=== PATIENT | male | born 1975 | race Caucasian/White ===

== ENCOUNTER → 2017-11-11 11:40 | Outpatient (CLI) | payer OTHER, SELFPAY ==
[2017-11-11 12:34] LABS: Anion Gap 6 (5-15); BUN 15 mg/dL (7-18); BUN/Creat Ratio 14.3 RATIO (10-20); Calcium,Total 8.6 mg/dL (8.5-10.1); Chloride 109 mmol/L (98-107); Cholesterol 209 mg/dL (200); Creatinine, Serum 1.05 mg/dL (0.70-1.30); EST Glomerular Filtration Rate 82 mL/min (>60); Est Glom Filt Rate - Afr Amer 99 mL/min (>60); Glucose 89 mg/dL (74-106); High Density Lipoprotein 42 mg/dL; Potassium 4.3 mmol/L (3.5-5.1); Sodium Level 141 mmol/L (136-145); Triglycerides 181 mg/dL; Very Low Density Lipoprotein 36 mg/dL (5-40)
== END ==
PROVIDERS: Family Provider Family Medicine; PCP Family Medicine; Visit Provider Family Medicine
DX: Z00.00 Encounter for general adult medical examination without abnormal findings (principal)
CPT/HCPCS: 36415; 80048; 80061; 84403

== ENCOUNTER 2019-12-01 21:57 | Emergency (ER) | payer OTHER, SELFPAY ==
[2019-12-01 21:58] VITALS: BP 119/78; PULSE 197; RESP 15; TEMP 36.7; O2SAT 99; BMI 34.4
--- NOTE | 2019-12-01 22:07 | EKG12_ITS ---
Test Reason : PALPATIONS Blood Pressure : / mmHG Vent. Rate : 135 BPM Atrial Rate : 135 BPM P-R Int : 154 ms QRS Dur : 084 ms QT Int : 284 ms P-R-T Axes : 055 009 030 degrees QTc Int : 426 ms Sinus tachycardia Otherwise normal ECG Confirmed by MAT RODRIGEZ ([id number]), news copy editor CARTER DAVENPORT ([id number]) on 12/03/2019 2:00:34 PM Referred By: CHINO Confirmed By:MAT RODRIGEZ
--- NOTE | 2019-12-01 22:07 | RAD_ITS ---
HISTORY: HEART ARRYTHMIA/PALPATATIONS, ALSO HAD THEM 2 WEEKS AGO. EXAM: XR Chest 1 View: COMPARISON: None FINDINGS: # of images incl. paperwork: 1 Lungs are clear. Heart is not enlarged. No acute osseous pathology perceived. Pulmonary vascularity is distinct. No effusions. RAD/Chest 1 View (Portable) IMPRESSION: Normal. at [id number] Reported and signed by: Collins Cope MD Electronically Signed: Collins Cope MD at 22:57 EST Tel , Service support ,
--- NOTE | 2019-12-01 22:07 | ED.RN ---
SERVER ENGINEER CALLED FOR EKG, NO OLD EKGS IN MUSE
[2019-12-01 22:21] VITALS: BP 152/95; PULSE 132; RESP 20; O2SAT 96
[2019-12-01 22:44] LABS: Absolute Lymphocyte Count 2.56 X10^3/uL (0.83-4.51); Absolute Neutrophil Count 6.5 X10^3/uL (2.0-7.7); Basophil# 0.06 X10^3/uL; Basophil% 0.6 % (0-1); Eosinophil# 0.21 X10^3/uL; Hematocrit 44.9 % (40-54); Hemoglobin 15.2 g/dL (13.0-16.5); Lymphocyte # 2.56 X10^3/ul (4.0); Lymphocyte % 24.9 % (19-41); Mean Corp Hgb Conc 33.9 g/dL (32-36); Mean Corpuscular Hgb 29.2 pg (27.0-32.0); Mean Corpuscular Volume 86.2 fL (80-94); Mean Platelet Vol. 9.5 fl (6.2-12.0); Monocyte# 0.91 X10^3/uL; Monocyte% 8.9 % (0-10); NRBC Flagged by Analyzer 0 % (0-5); Neutrophil % 63.3 % (47-70); Platelet Count 292 K/mm3 (150-450); RBC Distribution Width CV 11.9 % (11.6-14.6); RBC Distribution Width SD 37.2 fl (35.1-43.9); Red Blood Count 5.21 M/mm3 (4.6-6.2); White Blood Count 10.3 K/mm3 (4.4-11.0)
[2019-12-01 22:55] LABS: International Normalized Ratio 1.1; Prothrombin Time (Protime)PT. 13.5 SECONDS (11.7-14.9)
[2019-12-01 23:09] LABS: Anion Gap 5 (5-15); BUN 11 mg/dL (7-18); BUN/Creat Ratio 9.5 RATIO (10-20); Chloride 108 mmol/L (98-107); Creatinine, Serum 1.16 mg/dL (0.70-1.30); EST Glomerular Filtration Rate 72 mL/min (>60); Est Glom Filt Rate - Afr Amer 87 mL/min (>60); Glucose 133 mg/dL (74-106); Potassium 3.7 mmol/L (3.5-5.1); Sodium Level 141 mmol/L (136-145)
[2019-12-01] MEDS: 0.9% Normal Saline 1,000 ML 999 ML IV (23:18)
[2019-12-01 23:21] VITALS: BP 141/93; PULSE 120; RESP 16; O2SAT 97
[2019-12-02 00:09] VITALS: BP 136/97; PULSE 99; RESP 22; O2SAT 98
--- NOTE | 2019-12-02 01:10 | ED.VIS.GEN ---
History of Present Illness Chief Complaint: Palpitations Informant: Patient Onset: Hours - several Context: Sudden Onset Timing: Intermittent, Lasts - minutes or seconds Quality: racing Location: chest Current Severity: Mild Maximum Severity: Moderate Worsened by: nothing Relieved by: nothing Associated Symptoms: none Narrative: Palpitations without any chest discomfort, lightheadedness, shortness of breath, leg swelling. Had this before but it was after drinking a whole bottle of cold brew coffee. He has not had any since until today. He states his coffee intake has been less than usual, but he did drink 2 cups total over the course of the day today, and he presents almost at midnight. He has no other health problems. Past Medical History - Allergies and Home Meds Allergies/Adverse Reactions: Allergies No Known Allergies Allergy (Verified 12/01/19 21:58) Primary Care Physician: Jacob Moy MD [Primary Care Provider] - Past Medical History: None Surgical History: no surgical history Lives: Spouse/ Significant Other Smoking Status: Never smoker Drugs: None Review of Systems General: Denies: Chills, Fever, Sweats Eyes: Denies: Visual changes - bilaterally, Diplopia ENT: Denies: Rhinorrhea, Sore throat Cardiovascular: Reports: Palpitations, Heart racing. Denies: Chest pain Respiratory: Denies: Dyspnea, Cough, Dyspnea on exertion Gastrointestinal: Denies: Abdominal pain, Nausea, Vomiting, Diarrhea, Melena, Hematochezia Genitourinary: Denies: Dysuria, Hematuria, Frequency Musculoskeletal: Denies: Back pain, Extremity Pain Skin: Denies: Rash, Wounds Neurological: Denies: Headache, Weakness, Numbness Physical Exam Vital Signs/Narrative: Vital Signs Temp Pulse Resp BP Pulse Ox 12/02/19 00:09 99 22 H 136/97 H 98 12/01/19 23:21 120 H 16 141/93 H 97 12/01/19 22:21 132 H 20 H 152/95 H 96 12/01/19 21:58 98.0 F 197 H 15 119/78 99 Inital Vital Signs reviewed: Yes General: Well nourished, Well developed, No Acute Distress Head: Normocephalic, Atraumatic Eyes: Perrl, EOMI ENT: Moist mucous membranes, No rhinorrhea Neck: Supple, Nontender, No JVD Cardiovascular: Regular rate, Regular rhythm, No murmurs, Normal S1, Normal S2, Tachycardia Respiratory: No distress, CTA bilaterally, Chest nontender Abdomen: Soft, Nontender, Nondistended, Normal bowel sounds Back: Nontender, Normal Inspection Extremities: Nontender, No edema. Negative for: Calf Tenderness Skin: Normal color, No rash, No Trauma Neurological: Alert, Oriented x3, Cranial nerves II-XII grossly intact, Normal Strength, Normal Sensation, Normal Gait Psychological: Normal affect, Normal Mood Diagnostic/Tx/Re-eval - Rhythm Strip Rhythm Strip: Sinus Tach Rate: 135 Ectopy: None - EKG Initial EKG Interpretation: No Acute Injury Pattern, Sinus Tachycardia - Upright T waves inferiorly Prior: No Prior - Medical Decision Making Patient appeared to have intermittent runs of atrial fib. We obtained an initial EKG that either shows sinus tachycardia or ectopic atrial tachycardia, and attempted to obtain 1 when he was going into this narrow complex irregular tachycardia in the 170s that resembled atrial fibrillation, but he did not have another episode. We do have it on a rhythm strip. With time his heart rate came down to the 90s. His labs are unremarkable. I discussed with cardiology Dr. Albert, he recommends Toprol XL 25mg once daily and following up as an outpatient. He is comfortable with that plan. ED Disposition - Plan for ED Patient: Disposition: Home or Assisted Living Diagnosis: Tachyarrhythmia Instructions: Palpitations, Pat (P.A.T.) Prescriptions: Metoprolol Succinate [Toprol Xl] 25 mg PO DAILY 30 Days #30 tab.er.24h Transmission Status: Pending to [id number] Referrals: [facility] [Provider Group] (call tomorrow for appt)
[2019-12-02 01:14] VITALS: BP 150/95; PULSE 94; RESP 18; O2SAT 100
[2019-12-02] MEDS: Metoprolol Tartrate 25 MG Tablet PO (01:42)
[2019-12-02 01:43] VITALS: BP 141/94; PULSE 90; RESP 18; O2SAT 98
== END 2019-12-02 01:51 | disposition home or self-care (01) ==
PROVIDERS: Emergency Provider Emergency Medicine; PCP Family Medicine
DX: R00.0 Tachycardia, unspecified (principal)
CPT/HCPCS: 71045; 80048; 84484; 85025; 85610; 93005; 96361; 96374; 99285; J7030; A4216

== ENCOUNTER → 2019-12-18 14:30 | Outpatient (CLI) | payer OTHER, SELFPAY ==
[2019-12-01 21:58] VITALS: BMI 34.4
[2019-12-18 16:11] LABS: Anion Gap 5 (5-15); BUN 15 mg/dL (7-18); BUN/Creat Ratio 15.3 RATIO (10-20); Calcium,Total 8.9 mg/dL (8.5-10.1); Chloride 107 mmol/L (98-107); Cholesterol 241 mg/dL (200); Creatinine, Serum 0.98 mg/dL (0.70-1.30); EST Glomerular Filtration Rate 88 mL/min (>60); Est Glom Filt Rate - Afr Amer 106 mL/min (>60); Glucose 84 mg/dL (74-106); High Density Lipoprotein 45 mg/dL; Sodium Level 140 mmol/L (136-145); Triglycerides 277 mg/dL; Very Low Density Lipoprotein 55 mg/dL (5-40)
[2019-12-21 08:04] LABS: Vitamin D,25 Hydroxy 15.1 ng/mL
== END ==
PROVIDERS: PCP Family Medicine; Referring Provider Family Medicine; Visit Provider Family Medicine
DX: Z00.00 Encounter for general adult medical examination without abnormal findings (principal)
CPT/HCPCS: 36415; 80048; 80061; 82306

== ENCOUNTER → 2021-09-08 08:27 | Outpatient (CLI) | payer OTHER, SELFPAY ==
[2021-09-08 10:52] LABS: ALB/GLOB Ratio 1.2 RATIO (0.9-2.4); AST(SGOT) 14 U/L (15-37); Alanine Aminotransfer ALT/SGPT 29 U/L (16-61); Alkaline Phosphatase 44 U/L (45-117); Anion Gap 7 (5-15); BUN 21 mg/dL (7-18); BUN/Creat Ratio 20.8 RATIO (10-20); Calcium,Total 8.9 mg/dL (8.5-10.1); Chloride 106 mmol/L (98-107); Cholesterol 158 mg/dL (200); Creatinine, Serum 1.01 mg/dL (0.70-1.30); EST Glomerular Filtration Rate 84 mL/min (>60); Est Glom Filt Rate - Afr Amer 102 mL/min (>60); Globulin 3.4 g/dL (2.2-4.2); Glucose 105 mg/dL (74-106); High Density Lipoprotein 46 mg/dL; Potassium 4.4 mmol/L (3.5-5.1); Protein, Total 7.4 g/dL (6.4-8.2); Sodium Level 141 mmol/L (136-145); Thyroid Stim Hormone (TSH) 2.18 uIU/mL (0.358-3.74); Triglycerides 222 mg/dL; Very Low Density Lipoprotein 44 mg/dL (5-40)
== END ==
PROVIDERS: PCP Family Medicine; Referring Provider Family Medicine; Visit Provider Family Medicine
DX: R53.83 Other fatigue (principal); E78.5 Hyperlipidemia, unspecified
CPT/HCPCS: 36415; 80053; 80061; 84403; 84443

== ENCOUNTER 2021-10-19 09:57 | Outpatient (CLI) | payer OTHER, SELFPAY | END 2021-10-19 23:59 | disposition short-term general hospital (02) | LOC: MFPLAB 10:00 | PROVIDERS: PCP Family Medicine; Referring Provider Family Medicine; Visit Provider Family Medicine | DX: U07.1 COVID-19 (principal) | CPT/HCPCS: 36415; 84403 ==

== ENCOUNTER → 2022-04-15 | Outpatient (CLI) | payer OTHER, SELFPAY | END | disposition home or self-care (01) | LOC: MFPLAB 08:18 | PROVIDERS: PCP Family Medicine; Visit Provider Family Medicine | DX: R79.89 Other specified abnormal findings of blood chemistry (principal) | CPT/HCPCS: 36415; 84403 ==

== ENCOUNTER → 2022-08-24 | Outpatient (CLI) | payer OTHER, SELFPAY ==
[2022-08-24 10:27] LABS: ALB/GLOB Ratio 1.1 RATIO (0.9-2.4); AST(SGOT) 15 U/L (15-37); Alanine Aminotransfer ALT/SGPT 30 U/L (16-61); Albumin, Serum 3.7 g/dL (3.2-5.0); Alkaline Phosphatase 42 U/L (45-117); Anion Gap 6 (5-15); BUN 12 mg/dL (7-18); BUN/Creat Ratio 10.3 RATIO (10-20); Calcium,Total 8.9 mg/dL (8.5-10.1); Chloride 107 mmol/L (98-107); Cholesterol 135 mg/dL (200); Creatinine, Serum 1.16 mg/dL (0.70-1.30); EST Glomerular Filtration Rate 71 mL/min (>60); Est Glom Filt Rate - Afr Amer 86 mL/min (>60); Globulin 3.4 g/dL (2.2-4.2); Glucose 106 mg/dL (74-106); High Density Lipoprotein 36 mg/dL; Potassium 3.4 mmol/L (3.5-5.1); Protein, Total 7.1 g/dL (6.4-8.2); Sodium Level 144 mmol/L (136-145); Triglycerides 221 mg/dL; Very Low Density Lipoprotein 44 mg/dL (5-40)
== END | disposition home or self-care (01) ==
LOC: MFPLAB 08:33
PROVIDERS: PCP Family Medicine; Referring Provider Family Medicine; Visit Provider Family Medicine
DX: E78.5 Hyperlipidemia, unspecified (principal)
CPT/HCPCS: 36415; 80053; 80061

== ENCOUNTER → 2022-09-02 | Outpatient (CLI) | payer OTHER, SELFPAY | END | disposition home or self-care (01) | LOC: MTLAB 11:18 | PROVIDERS: PCP Family Medicine; Referring Provider Family Medicine; Visit Provider Family Medicine | DX: E29.1 Testicular hypofunction (principal) | CPT/HCPCS: 36415; 84403 ==

== ENCOUNTER → 2023-02-22 | Outpatient (CLI) | payer OTHER, SELFPAY ==
[2023-02-22 10:50] LABS: ALB/GLOB Ratio 1.2 RATIO (0.9-2.4); AST(SGOT) 16 U/L (15-37); Alanine Aminotransfer ALT/SGPT 27 U/L (16-61); Albumin, Serum 3.8 g/dL (3.2-5.0); Alkaline Phosphatase 38 U/L (45-117); Anion Gap 7 (5-15); BUN 19 mg/dL (7-18); BUN/Creat Ratio 15.4 RATIO (10-20); Calcium,Total 8.7 mg/dL (8.5-10.1); Chloride 110 mmol/L (98-107); Cholesterol 143 mg/dL (200); Creatinine, Serum 1.23 mg/dL (0.70-1.30); EST Glomerular Filtration Rate 67 mL/min (>60); Est Glom Filt Rate - Afr Amer 81 mL/min (>60); Globulin 3.2 g/dL (2.2-4.2); Glucose 114 mg/dL (74-106); High Density Lipoprotein 39 mg/dL; Potassium 4.2 mmol/L (3.5-5.1); Sodium Level 143 mmol/L (136-145); Triglycerides 250 mg/dL; Very Low Density Lipoprotein 50 mg/dL (5-40)
== END | disposition home or self-care (01) ==
LOC: MFPLAB 08:28
PROVIDERS: PCP Family Medicine; Visit Provider Family Medicine
DX: R79.89 Other specified abnormal findings of blood chemistry (principal); E78.5 Hyperlipidemia, unspecified
CPT/HCPCS: 36415; 80053; 80061; 84403

== ENCOUNTER → 2023-08-23 | Outpatient (CLI) | payer OTHER, SELFPAY ==
[2023-08-23 10:18] LABS: Absolute Lymphocyte Count 1.92 X10^3/uL (0.83-4.51); Absolute Neutrophil Count 5.4 X10^3/uL (2.0-7.7); Basophil# 0.07 X10^3/uL; Basophil% 0.9 % (0-1); Eosinophil# 0.18 X10^3/uL; Eosinophils% 2.2 % (0-5); Hematocrit 48.1 % (40-54); Hemoglobin 15.7 g/dL (13.0-16.5); Lymphocyte # 1.92 X10^3/ul (0.83-4.51); Lymphocyte % 23.5 % (19-41); Mean Corp Hgb Conc 32.6 g/dL (32-36); Mean Corpuscular Hgb 29.2 pg (27.0-32.0); Mean Corpuscular Volume 89.4 fL (80-94); Mean Platelet Vol. 10.3 fl (6.2-12.0); Monocyte# 0.59 X10^3/uL; Monocyte% 7.2 % (0-10); NRBC Flagged by Analyzer 0 % (0-5); Neutrophil # 5.38 X10^3/uL (2.7-7.7); Platelet Count 278 K/mm3 (150-450); RBC Distribution Width CV 11.9 % (11.6-14.6); RBC Distribution Width SD 38.9 fl (35.1-43.9); Red Blood Count 5.38 M/mm3 (4.6-6.2); White Blood Count 8.2 K/mm3 (4.4-11.0)
[2023-08-23 11:11] LABS: ALB/GLOB Ratio 1.2 RATIO (0.9-2.4); AST(SGOT) 14 U/L (15-37); Alanine Aminotransfer ALT/SGPT 33 U/L (16-61); Alkaline Phosphatase 42 U/L (45-117); Anion Gap 6 (5-15); BUN 18 mg/dL (7-18); BUN/Creat Ratio 15.9 RATIO (10-20); Calcium,Total 8.7 mg/dL (8.5-10.1); Chloride 108 mmol/L (98-107); Creatinine, Serum 1.13 mg/dL (0.70-1.30); EST Glomerular Filtration Rate 73 mL/min (>60); Est Glom Filt Rate - Afr Amer 89 mL/min (>60); Globulin 3.3 g/dL (2.2-4.2); Glucose 103 mg/dL (74-106); Potassium 4.5 mmol/L (3.5-5.1); Protein, Total 7.3 g/dL (6.4-8.2); Sodium Level 141 mmol/L (136-145)
== END | disposition home or self-care (01) ==
LOC: MFPLAB 08:46
PROVIDERS: PCP Family Medicine; Visit Provider Family Medicine
DX: E78.5 Hyperlipidemia, unspecified (principal); E29.1 Testicular hypofunction
CPT/HCPCS: 36415; 80053; 84153; 84403; 85025; G0103

== ENCOUNTER → 2024-04-19 | Outpatient (CLI) | payer OTHER, SELFPAY ==
[2024-04-19 12:27] LABS: Absolute Lymphocyte Count 2.09 X10^3/uL (0.83-4.51); Absolute Neutrophil Count 5.1 X10^3/uL (2.0-7.7); Basophil# 0.06 X10^3/uL; Basophil% 0.7 % (0-1); Eosinophil# 0.24 X10^3/uL; Eosinophils% 2.9 % (0-5); Hematocrit 42.8 % (40-54); Hemoglobin 14.8 g/dL (13.0-16.5); Lymphocyte # 2.09 X10^3/ul (0.83-4.51); Lymphocyte % 25.5 % (19-41); Mean Corp Hgb Conc 34.6 g/dL (32-36); Mean Corpuscular Hgb 29.4 pg (27.0-32.0); Mean Corpuscular Volume 85.1 fL (80-94); Monocyte% 8.5 % (0-10); NRBC Flagged by Analyzer 0 % (0-5); Neutrophil # 5.09 X10^3/uL (2.7-7.7); Platelet Count 285 K/mm3 (150-450); RBC Distribution Width CV 12.6 % (11.6-14.6); RBC Distribution Width SD 38.5 fl (35.1-43.9); Red Blood Count 5.03 M/mm3 (4.6-6.2); White Blood Count 8.2 K/mm3 (4.4-11.0)
[2024-04-19 12:48] LABS: ALB/GLOB Ratio 1.2 RATIO (0.9-2.4); AST(SGOT) 12 U/L (15-37); Alanine Aminotransfer ALT/SGPT 22 U/L (16-61); Albumin, Serum 3.6 g/dL (3.2-5.0); Alkaline Phosphatase 44 U/L (45-117); Anion Gap 5 (5-15); BUN 14 mg/dL (7-18); BUN/Creat Ratio 12.4 RATIO (10-20); Calcium,Total 8.7 mg/dL (8.5-10.1); Chloride 109 mmol/L (98-107); Cholesterol 138 mg/dL (200); Creatinine, Serum 1.13 mg/dL (0.70-1.30); EST Glomerular Filtration Rate 73 mL/min (>60); Est Glom Filt Rate - Afr Amer 88 mL/min (>60); Globulin 3.1 g/dL (2.2-4.2); Glucose 99 mg/dL (74-106); High Density Lipoprotein 39 mg/dL; PSA,Total - Annual Screen 1.56 ng/mL (0.00-4.00); Potassium 3.7 mmol/L (3.5-5.1); Protein, Total 6.7 g/dL (6.4-8.2); Sodium Level 140 mmol/L (136-145); Triglycerides 171 mg/dL; Very Low Density Lipoprotein 34 mg/dL (5-40)
== END | disposition home or self-care (01) ==
LOC: MFPLAB 10:12
PROVIDERS: PCP Family Medicine; Visit Provider Family Medicine
DX: E78.5 Hyperlipidemia, unspecified (principal)
CPT/HCPCS: 36415; 80053; 80061; 84153; 84403; 85025; G0103

== ENCOUNTER → 2024-08-26 | Outpatient (CLI) | payer OTHER, SELFPAY ==
--- NOTE | 2024-08-26 08:53 | BI_ITS ---
MAMMOGRAPHY - BILATERAL DIAGNOSTIC REASON FOR EXAM: Male, 49 years old. Left breast tenderness and mass. PERTINENT HISTORY: Non-contributory. TECHNIQUE: Digital bilateral breast carlos (3D mammographic acquisition) in the CC and MLO projections. 2-D mediolateral oblique (MLO) and craniocaudad (CC) views of both breasts were obtained. CAD: Full Field Digital Mammography with Computer Added Detection was performed. COMPARISON: None. Baseline examination. FINDINGS: Breast Composition: The breasts are almost entirely fatty. There are no dominant masses or suspicious calcifications. Small bilateral fat containing axillary lymph nodes. No other significant abnormalities are identified. BI/DIAG MAMM W/CAD, BILAT IMPRESSION: Negative diagnostic mammogram. With the patient''s history of a tender palpable lump in the left breast, correlation with ultrasound recommended. ASSESSMENT CATEGORY: BIRADS Category 0: Incomplete. Need additional imaging evaluation. A letter regarding these results will be sent to the patient by the facility within 30 days. Approximately 10% of breast cancers are not detected by mammography. A normal mammogram should not delay biopsy of a clinically suspicious abnormality. Electronically Signed: Jay Connors MD at 10:17 EST ,
--- NOTE | 2024-08-26 09:29 | US_ITS ---
STUDY: ULTRASOUND BREAST - LEFT REASON FOR EXAM: Male, 49 years old. Left breast tenderness/mass TECHNIQUE: Axial and longitudinal images of the LEFT breast were performed with a high resolution ultrasound transducer. # OF IMAGES: 31 COMPARISON: Comparison is made with prior mammogram done earlier today. FINDINGS: LEFT Breast: Scattered fibroglandular tissue. No masses seen. US/Breast Limited Unilateral IMPRESSION: Unremarkable sonogram. ASSESSMENT CATEGORY: BIRADS Category 1: Negative. A letter regarding these results will be sent to the patient by the facility within 30 days. Electronically Signed: Jay Connors MD at 10:40 EST ,
== END | disposition home or self-care (01) ==
PROVIDERS: PCP Family Medicine; Referring Provider Family Medicine; Visit Provider Family Medicine
DX: N64.4 Mastodynia (principal)
CPT/HCPCS: 76642; 77062; 77066; G0279

== ENCOUNTER → 2025-04-25 | Outpatient (CLI) | payer OTHER, SELFPAY ==
--- OUTSIDE RECORDS SUMMARY | 2025-04-25 11:41 | XMS RPT_ITS | CCD ---
Author Organization [facility] Care Team Providers Care [employer] Name Role Phone TAMMY MARSHALL Unavailable Unavailable JACOB BOWLING Unavailable Unavailable JACOB BOWLING Unavailable Unavailable TAMMY MARSHALL Unavailable Unavailable JACOB BOWLING Unavailable Unavailable JACOB BOWLING Unavailable Unavailable Miranda FRANKS MD Unavailable [phone] RED JOSEPH Unavailable Unavailable Unavailable Jacob Mahmood MD Primary Care Provider [phone] NANI ZURITA Attending Unavailable JACOB MAHMOOD Primary Care Unavailable Dr. Jacob Mahmood MD Primary Care Provider [phone] Dr. Jacob Mahmood MD Referring Provider Dr. Lonny Mercado MD Attending Provider Jacob Mahmood Referring Unavailable Lonny Mercado Attending Unavailable Jacob Mahmood Primary Care Unavailable Jacob Mahmood Attending Unavailable Jacob Mahmood Referring Unavailable Jacob Mahmood Primary Care Unavailable Allergies Allergy Classification Reported Allergen(s) Allergy Type Date of Onset Reaction(s) Facility (8 sources) Mold Extract; Translations: [MOLD] Drug Allergy 01-08-2021 Unknown [facility] (1 source) Mold Extract Drug Allergy 04-22-2025 [facility] Repository Medications Current Medications Medication Drug Class(es) Dates Sig (Normalized) Sig (Original) atovaquone 250 mg / proguanil hydrochloride 100 mg oral tablet (1 source) Antimalarial, Antiprotozoal Start: 10-18-2023 Malarone 250 mg-100 mg tablet ; 1 (one) tablet daily for 17 days Quantity: 17 {Tablet} Refills: 0 Ordered: 18-Oct-2023 GRACIA ESPITIA Start: 18-Oct-2023 24 hr buPROPion hydrochloride 300 mg extended release oral tablet (2 sources) Aminoketone Start: 04-22-2025 take 1 tablet by mouth once daily Bupropion Hcl 300 mg tablet extended release 24 hr Active 300 mg PO daily April 22, 2025 12:00am Start: 11-06-2021 take 1 tablet by santana once daily buPROPion XL (WELLBUTRIN XL) 300 mg 24 hr tablet Take 300 mg by mouth once daily. 0 11/06/2021 Active cholecalciferol 0.025 mg oral capsule (7 sources) Vitamin D Start: 01-08-2021 take 1 capsule by mouth once daily Cholecalciferol, Vitamin D3, 25 mcg (1,000 unit) cap Take 1 capsule by mouth once daily. 01/08/2021 Active Start: 01-08-2021 take 1 capsule by mo [facility] once daily Cholecalciferol (Vitamin D3) 25 mcg (1,000 unit) capsule Active 25 ug PO DAILY January 08, 2021 12:00am loratadine 10 mg oral tablet (7 sources) Start: 03-06-2020 take 1 tablet by mouth once daily Loratadine 10 mg tablet Active 10 mg PO DAILY March 06, 2020 12:00am losartan potassium 50 mg oral tablet (20 sources) Angiotensin 2 Receptor Nicol Start: 12-25-2019 End: 07-04-2024 take 1 tablet by mouth once daily Losartan 50 mg tablet Active 50 mg PO DAILY 90 3 July 04, 2024 9:43am 24 hr metoprolol succinate 25 mg extended release oral tablet (20 sources) beta-Adrenergic Nicol Start: 12-21-2020 End: 03-04-2025 take 1 tablet by mouth once daily Metoprolol Succinate 25 mg tablet extended release 24 hr Active 25 mg PO DAILY 90 90 3 March 04, 2025 9:08am Start: 12-02-2019 End: 01-01-2020 take 1 tablet by mouth once daily Metoprolol Succinate 25 MG tablet extended release 24 hr Discontinued 25 mg PO DAILY 30 30 0 December 02, 2019 1:00am December 31, 2019 12:00am January 01, 2020 12:07am vscadwoimq-kgtougsroiaf-hdvy ostadil 15 MG - 0.5 MG - 5 MCG/ML injection (CPD) (2 sources) Start: 07-20-2020 ydnrtmyvka-ineeoxmpuxqp-prjb ostadil 15 MG - 0.5 MG - 5 MCG/ML injection (CPD) Indications: Other male erectile dysfunction 5 mL by INTRACAVERNOSAL route as directed. Mix with 5 mL of bacteriostatic water. Inject 0.1ml into the penis as directed 5 mL 3 07/20/2020 Active esrjymtspl-yfdkvjgvajev-twhx ostadil 30 MG - 2 MG - 40 MCG/ML injection (CPD) (1 source) Start: 04-26-2024 iqiawkozov-zjoxsfgrermi-tllg ostadil 30 MG - 2 MG - 40 MCG/ML injection (CPD) 5 mL by INTRACAVERNOSAL route as directed. 5 mL by INTRACAVERNOSAL route as directed. Mix with 5 mL of bacteriostatic water. Inject 0.1ml into the penis as directed 5 mL 3 04/26/2024 Active rosuvastatin calcium 5 mg or al tablet (7 sources) H M G - C o A R e d u c t a s e I n h i b i t o r Start: 12-25-2019 t a k e 1 t a b l e t b y m o u t h o n c e d a i l y Rosuvastatin (Crestor) 5 mg tablet Active 5 mg PO DAILY December 25, 2019 12:00am tadalafil 20 mg oral tablet (2 sources) P h o s p h o d i e s t e r a s e 5 I n h i b i t o r Start: 12-01-2021 End: 04-26-2024 Tadalafil (CIALIS) 20 mg tab let Take 1 tablet by mouth as needed. 1-2 hours before sexual intercourse. 30 tablet 3 04/26/2024 Active 1 ml testosterone cypionate 200 mg/ml injection (2 sources) A n d r o g e n Start: 04-22-2025 i n j e c t 2 0 0 m g b y i n t r a m u s c u l a r i n j e c t i o n e v e r y o t h e r w e e k Testosterone Cypionate 200 mg/mL oil Active 200 mg IM every 2 weeks April 22, 2025 12:00am Start: 11-09-2021 inject 1 mL by intra muscular injection every other week testosterone cypionate (DEPO-TESTOSTERONE) 200 mg/mL injection INJECT 1 ML INTRAMUSCULARLY EVERY TWO WEEKS 0 11/09/2021 Active TRI-MIX HIGHER CONCENTRATIO N (4 sources) Start: 04-03-2019 TRI-MIX HIGHE R CONCENTRATION Tri-Mix Higher Concentration- Prepare Sterile Solution of: Papaverine 50mg/mL, PGE-1 (alprostadil) 25mcg/mL, PPhentolamine 2.5mg/mL: Use as directed. 5 mL 3 04/03/2019 Active Start: 03-28-2018 TRI-MIX HIGHE R CONCENTRATION Indications: ED (erectile dysfunction) of organic origin Tri-Mix Higher Concentration- Prepare Sterile Solution of: Papaverine 50mg/mL, PGE-1 (alprostadil) 25mcg/mL, PPhentolamine 2.5mg/mL: Use as directed. 5 mL 3 03/28/2018 Active Problems Active Problems Problem Classification Problem Date Documented Da te Episodic/Chronic Abdominal hernia (3 sources) Umbilical hernia; Translations: [Umbilical hernia without obstruction or gangrene] Onset: 04-22-2025 04-22-2025 Episodic Administrative/social admission (3 sources) Patient encounter status; Translations: [Encounter for health counseling related to travel] 10-18-2023 Episodic Cardiac dysrhythmias (5 sources) Paroxysmal atrial fibrillation; Translations: [Paroxysmal atrial fibrillation] Onset: 12-02-2019 01-28-2020 Chronic Cardiac dysrhythmias (10 sources) Palpitations; Translations: [Palpitations] 01-28-2020 Episodic Disorders of lipid metabolism (6 sources) Hyperlipidemia; Translations: [Hyperlipidemia, unspecified] 01-28-2020 Chronic Essential hypertension (5 sources) Essential hypertension; Translations: [Essential (primary) hypertension] 01-28-2020 Chronic Other injuries and conditions due to external causes (1 source) Injury of right lower leg; Translations: [Unspecified injury of right lower leg, initial encounter] 01-14-2021 Episodic Other male genital disorders (1 source) Male erectile dysfunction, unspecified Onset: 03-28-2018 Chronic Other male genital disorders (2 sources) Other male erectile dysfunction; Translations: [Impotence of organic origin] Onset: 04-26-2024 04-26-2024 Chronic Other screening for suspected conditions (not mental disorders or infectious disease) (5 sources) Finding of arterial oxygen concentration; Translations: [Abnormal blood-gas level] 03-06-2020 Episodic Comment on above: night oxim Unclassified (1 source) Unknown / UNK(Unknown) Onset: 03-28-2018 Past or Other Problems Problem Classification Problem Date Documented Da te Episodic/Chronic Nonmalignant breast conditions (1 source) Mastodynia; Translations: [Mastodynia] Onset: 09-23-2024 Episodic Results Test Name Value Interpretation Reference Range Facility Surgery Visit Reporton 04-22 Surgery Visit Report [facility] [address] [place] [address] OFFICE VISIT Date of Service: 04/22/25 MR#: [id number] Acct: [id number] Name: VICENTE ESPITIA Rep #: [id number] : 1975 Provider: Dr. Lonny han MD Age/Sex: 49/M Location: [facility] Status: Signed Intake Vital Signs 04/22/25 14:52 Height 6 ft 2 in Weight: 286 lb BMI 36.7 BP 133/87 H Blood Pressure Location Rt brachial Position Sitting Respiration 16 Intake Visit Reasons: Hernia Chief Complaint: umb hernia Trout Farmer Required: No Is patient in pain?: No Allergies mold Allergy (Severe, Verified 04/22/25 14:53) Unknown Medications ???Medication ???Instructions ???Recorded ???Confirmed ???Type rosuvastatin 5 mg tablet (Crestor) 5 mg PO DAILY 12/25/19 04/22/25 History loratadine 10 mg tablet 10 mg PO DAILY 03/06/20 04/22/25 H istory cholecalciferol (vitamin D3) 25 25 mcg PO DAILY 01/08/21 04/22/25 History mcg (1,000 unit) capsule losartan 50 mg tablet 50 mg PO DAILY #90 tabs 07/04/24 0 04/22/25 Rx metoprolol succinate 25 mg 25 mg PO DAILY 90 days #90 tabs 04/22/25 Rx tablet,extended release 24 hr bupropion HCl 300 mg 24 hr tablet, 300 mg PO QDAY 04/22/25 04/22/25 History extended release testosterone cypionate 200 mg/mL 200 mg IM Q2W 04/22/25 04/22/25 Hi story intramuscular oil Have you fallen in the past year?: No PFSH Medical History (Updated 04/22/25 @ 15:[address] Lonny Mercado MD) High cholesterol Paroxysmal atrial fibrillation (12/02/19) Obesity Hyperlipidemia Essential (primary) hypertension Erectile dysfunction Family History Mother Rheumatoid arthritis Grandmother Colon cancer Grandfather Diabetes Polio Social History Smoking Status: Never smoker alcohol intake: current what type of physical activity do you participate in: walking HPI HPI HPI: Patient is a 49-year-old male here for umbilical hernia. He says has been there for about a year and a half. He denies any nausea or vomiting or fevers or chills or pain in the area. ROS General General: No weight change, appetite, fatigue, colon cancer, breast cancer or weakness HEENT HEENT: No difficulty swallowing, eye injury, eye surgery, swollen glands or hoarseness Endo Endocrine: No thyroid disease, diabetes mellitus, thyroid cancer, Hair loss, heat intolerance or cold intolerance Skin Skin: No rash or changing moles Breast Breast: No left breast lump, right breast lump, nipple discharge, breast pain, abnormal mammogram, abnormal US or breast enlargement Musc Musculoskeletal: No back problems, arthritis, rheumatoid arthritis, gout or joint pain Cardio Cardiovascular: Yes high blood pressure; No murmur, pacemaker, heart disease, atrial fibrillation, heart attack, heart stent, palpitations, shortness of breath with exertion or chest pain Psych Psychiatric: Yes anxiety; No depression or hearing voices Resp Respiratory: No shortness of breath, No sleep apnea, No cough, No COPD, No asthma, No emphysema and No wheezing Gastro Gastrointestinal: No abdominal pain, No nausea or vomiting, No diarrhea, No constipation, No blood in stool, No acid reflux, No hemorrhoids, No ulcers, No gallbladder problem and No black,tarry stools Mani Hematologic: No blood thinners, No blood disorders, No bleeding, No anemia and No blood clots Neuro Neurologic: No system reviewed and no additional complaints, except as documented, No as per HPI, No abnormal gait, No abnormal hearing, No abnormal movements, No abnormal speech, No behavioral cifuentes ges, No burning sensations, No confusion, No convulsions, No disequilibrium, No dizziness, No localized weakness, No frequent falls, No headache(s), No lack of coordination, No loss of vision, No memory loss, No numbness, No other visual disturbances, No radicular pain, No restless legs, No sensory deficit, No syncope, No tingling, No tremor(s), No weakness and No other Exam Const General: cooperative Orientation: alert and oriented x3 HENMT Head: normal to inspection Neck Neck: normal visual inspection and full ROM Chest Chest palpation inspection: normal inspection of the chest Resp Effort Inspection: normal respiratory effort Auscultation: clear to auscultation bilaterally Cardio Rate: regular rate Rhythm: regular rhythm GI Inspection: non-distended Palpation: soft, hernia umbilical and nontender Skin General: no rashes or lesions noted Neuro General: patient alert and patient oriented x3 Extrem General: full ROM Psych Appearance: grossly normal Mental Status: mental status grossly normal Assessment and Plan Asse (more content not included)... Normal [facility] Breast Limited Unilateralon 08-26-2024 Breast Limited Unilateral [facility] Imaging Services [address] [place] [id number] Breast Limited Unilateral MR#: [id number] Acct: [id number] Name: VICENTE ESPITIA Rep #: [id number] : 1975 M 49 From: Jay blandon MD PCP: Dr. Jacob Mahmood MD Status: REG [facility] Study: Breast Limited Unilateral Date of Exam: Exam# [id number] Ordering Dr: Jacob Mahmood MD [id number] STUDY: ULTRASOUND BREAST - LEFT REASON FOR EXAM: Male, 49 years old. Left breast tenderness/mass TECHNIQUE: Axial and longitudinal images of the LEFT breast were performed with a high resolution ultrasound transducer. # OF IMAGES: 31 COMPARISON: Comparison is made with prior mammogram done earlier today. FINDINGS: LEFT Breast: Scattered fibroglandular tissue. No masses seen. US/Breast Limited Unilateral IMPRESSION: Unremarkable sonogram. ASSESSMENT CATEGORY: BIRADS Category 1: Negative. A letter regarding these results will be sent to the patient by the facility within 30 days. Electronically Signed: Jay Connors MD at 10:40 EST Reading Location ID and State: [facility] / [place] , Service support , CC: Dr. Jacob Mahmood MD Trout Farmer: Signed Normal [facility], [facility] Imaging Services [address] [place], [place] [id number] DIAG MAMM W/CAD, BIL MR#: [id number] Acct: [id number] Name: VICENTE ESPITIA Rep #: [id number] : 1975 M 49 From: Jay blandon MD PCP: Dr. Jacob Mahmood MD Status: [facility] Study: DIAG MAMM W/CAD, BILAT Date of Exam: 08/26/24 Exam# [id number] Ordering Dr: Jacob Mahmood MD [id number] MAMMOGRAPHY - BILATERAL DIAGNOSTIC REASON FOR EXAM: Male, 49 years old. Left breast tenderness and mass. PERTINENT HISTORY: Non-contributory. TECHNIQUE: Digital bilateral breast carlos (3D mammographic acquisition) in the CC and MLO projections. 2-D mediolateral oblique (MLO) and craniocaudad (CC) views of both breasts were obtained. CAD: Full Field Digital Mammography with Computer Added Detection was performed. COMPARISON: None. Baseline examination. FINDINGS: Breast Composition: The breasts are almost entirely fatty. There are no dominant masses or suspicious calcifications. Small bilateral fat containing axillary lymph nodes. No other significant abnormalities are identified. BI/DIAG MAMM W/CAD, BILAT IMPRESSION: Negative diagnostic mammogram. With the patient''s history of a tender palpable lump in the left breast, correlation with ultrasound recommended. ASSESSMENT CATEGORY: BIRADS Category 0: Incomplete. Need additional imaging evaluation. A letter regarding these results will be sent to the patient by the facility within 30 days. Approximately 10% of breast cancers are not detected by mammography. A normal mammogram should not delay biopsy of a clinically suspicious abnormality. Electronically Signed: Jay Connors MD at 10:17 EST , CC: Dr. Jacob Mahmood MD Trout Farmer: Signed Normal [facility] 04-26-2024 [facility] Office Visit (UROLAE) VICENTE ESPITIA ([id number]) 1975 M [facility] Date Time Provider Department 04/26/24 10:40 AM NANI ZURITA During your visit today, we recorded the following information about you: Respiration Height 20/minute 1.88 m Nani Zurita PA 04/26/2024 10:26 AM Signed [facility] ======= HISTORY OF PRESENT ILLNESS ======= The patient is 48 year old male with a history of low T and ED who presents for follow up Patient was last seen in urology 11/[address] Marshall advised quad mix for ED. Also follow up with DR. Guzmán for testosterone replacement management and further surgical management for Ed. Interval History Patient has been doing well since last visit. No new major medical concerns. ICI working well for patient. No complaints today. Low T managed by PCP DATA REVIEW LABS No results found for: CREAT PAST MEDICAL HISTORY/COMORBIDITIE S PAST MEDICAL HISTORY Diagnosis Date ED (erectile dysfunction) No past surgical history on file. No changes. REVIEW OF SYSTEMS REVIEW OF SYSTEMS: CONSTITUTIONAL: No fevers, chills, nightsweats, unintended weight loss GI: No dysphagia/odynophagi a, problematic reflux, constipation, diarrhea, changes in stool habits, hematochezia, melena. : No new urinary complaints, including dysuria, gross hematuria or pyuria. INTEGUMENTARY: No new skin changes (rash, new or changing mole, new growth) All other systems were reviewed and are negative. PHYSICAL EXAM GENERAL APPEARANCE: Alert and oriented, No acute distress. HEENT: EOM, pupils equal, round and reactive. NECK: Normal ROM. LUNGS: Normal effort CARDIAC: Well perfused. ABDOMEN: Non-distended. MUSCULOSKELETAL: No edema. Normal ROM in extremities. NEUROLOGIC: Gait normal. No focal deficits. SKIN: Skin color normal. No suspicious rashes or lesions. == ASSESSMENT AND PLAN == This is a 48 year old male who presented today for follow up of ED and low testosterone ED, managed with with ICI and Cialis as needed - refills sent Low T, managed by PCP - Continue follow up with PCP Plan: The patient will follow up with us in 1 year or sooner with new, worsening or persistent symptoms. I spent a total of 25 minutes on the date of the service which included preparing to see the patient, aecs-ol-yrub patient care, completing clinical documentation, counseling and educating the patient/family/careg iver, and ordering medications, tests, or procedures. Nani Zurita PA-C Allergies As of Date: 04/26/2024 Noted Allergy Reaction MOLD 01/08/2021 16 - Unknown Date Reviewed: 04/26/2024 Reviewed by: Abisai De La Cruz MA - Fully Assessed Reason for Visit: med refill [Other] Visit Diagnosis:Other male erectile dysfunction [N52.8] Order(s):papaverine- phentolamine-alprost adil 30 MG - 2 MG - 40 MCG/ML injection (CPD)5 mL by INTRACAVERNOSAL route as directed. 5 mL by INTRACAVERNOSAL route as directed. Mix with 5 mL of bacteriostatic water. Inject 0.1ml into the penis as directedDisp: 5 mLRfl: 3 Tadalafil (CIALIS) 20 mg tabletTake 1 tablet by mouth as needed. 1-2 hours before sexual intercourse.Disp: 30 tabletRfl: 3 Prescriptions as of 04/26/2024 - papaverine-phentolam ine-alprostadil 30 MG - 2 MG - 40 MCG/ML injection (CPD) 5 mL by INTRACAVERNOSAL route as directed. 5 mL by INTRACAVERNOSAL route as directed. Mix with 5 mL of bacteriostatic water. Inject 0.1ml into the penis as directed - Tadalafil (CIALIS) 20 mg tablet Take 1 tablet by mouth as needed. 1-2 hours before sexual intercourse. - testosterone cypionate (DEPO-TESTOSTERONE) 200 mg/mL injection INJECT 1 ML INTRAMUSCULARLY EVERY TWO WEEKS - buPROPion XL (WELLBUTRIN XL) 300 mg 24 hr tablet Take 300 mg by mouth once daily. - metoprolol succinate ER (TOPROL XL) 25 mg 24 hr tablet Take 1 tablet by mouth once daily. - rosuvastatin (CRESTOR) 5 mg tablet Take 1 tablet by mouth once daily. - losartan (COZAAR) 50 mg tablet Take 1 tablet by mouth once daily. - Cholecalciferol, Vitamin D3, 25 mcg (1,000 unit) cap Take 1 capsule by mouth once daily. - loratadine (CLARITIN) 10 mg tablet Take 1 tablet by mouth once daily. - papaverine-phentolam ine-alprostadil 15 MG - 0.5 MG - 5 MCG/ML injection (CPD) 5 mL by INTRACAVERNOSAL route as directed. Mix with 5 mL of bacteriostatic water. Inject 0.1ml into the penis as directed - TRI-MIX HIGHER CONCENTRATION Tri-Mix Higher Concentration- Prepare Sterile Solution of: Papaverine 50mg/mL, PGE-1 (alprostadil) 25mcg/mL, PPhentolamine 2.5mg/mL: Use as directe (more content not included)... Normal [facility] Absolute lymphocyte countOrd ered By: Jacob Mahmood on 08-23-2023 Lymphocytes Auto (Unsp spec) [#/Vol] 1.92 10*3/uL 0.83-4.51 [facility] Basophil percentageOrdered B y: Jacob Mahmood on 08-23-2023 Basophils/100 WBC (Bld) 0.9 % 0-1 [facility] Bilirubin [Mass/Vol] 0.50 mg/dL 0.20-1.00 [facility] Comment on above: For patients on eltr ombopag therapy, use of Dimension Umbarger TBIL is not recommended. Chloride [Moles/Vol] 108 mmol/L 98-107 [facility] Eosinophils/100 WBC (Bld) 2.2 % 0-5 [facility] Glucose [Mass/Vol] 103 mg/dL 74-106 [facility] Comment on above: Fasting Glucose resu lt from 100 to 125 mg/dL suggests IMPAIRED HOMEOSTASIS per A.D.A. criteria. Neutrophils (Bld) [#/Vol] 5.4 10*3/uL 2.0-7.7 [facility] Neutrophils/100 WBC (Bld) 66.0 % 47-70 [facility] Potassium [Moles/Vol] 4.5 mmol/L 3.5-5.1 [facility] Protein [Mass/Vol] 7.3 g/dL 6.4-8.2 [facility] Sodium [Moles/Vol] 141 mmol/L 136-145 [facility] Testosterone [Mass/Vol] 768.08 ng/dL [facility] Comment on above: CENTRAL 90% REFERENC E RANGES MALE AGE <50 197.44 - 669.58 ng/dL MALE AGE > or = 50 187.72 - 684.19 ng/dL FEMALE AGE <50 8.38 - 35.01 ng/dL FEMALE AGE > or = 50 <7.00 - 35.92 ng/dL Effective as of 05/04/21 WBC (Bld) [#/Vol] 8.2 10*3/uL 4.4-11.0 [facility] Blood erythrocytes count (nu mber/volume)Ordered By: Jacob Mahmood on 08-23-2023 RBC (Bld) [#/Vol] 5.38 10*6/uL 4.6-6.2 [facility] Blood hemoglobin measurement (mass/volume)Ordered By: Jacob Mahmood on 08-23-2023 Hemoglobin (Bld) [Mass/Vol] 15.7 g/dL 13.0-16.5 [facility] Blood lymphocytes/100 leukoc ytesOrdered By: Jacob Mahmood on 08-23-2023 Lymphocytes/100 WBC (Bld) 23.5 % 19-41 [facility] Blood monocytes/100 leukocyt esOrdered By: Jacob Mahmood on 08-23-2023 Monocytes/100 WBC (Bld) 7.2 % 0-10 [facility] Blood platelet mean volumeOr dered By: Jacob Mahmood on 08-23-2023 Platelet mean volume (Bld) [Entitic vol] 10.3 fL 6.2-12.0 [facility] Determination of erythrocyte mean corpuscular volume (MCV)Ordered By: Jacob Mahmood on 08-23-2023 MCV (RBC) [Entitic vol] 89.4 fL 80-94 [facility] Hematocrit Auto (Bld) [Volum e fraction]Ordered By: Jacob Mahmood on 08-23-2023 Hematocrit (Bld) [Volume fraction] 48.1 % 40-54 [facility] Laboratory - Chemistry and C hemistry - challengeOrdered By: Jacob Mahmood on 08-23-2023 ALP [Catalytic activity/Vol] 42 U/L 45-117 [facility] ALT [Catalytic activity/Vol] 33 U/L 16-61 [facility] CO2 [Moles/Vol] 27.0 mmol/L 21.0-32.0 [facility] Globulin (S) [Mass/Vol] 3.3 g/dL 2.2-4.2 [facility] Urea nitrogen/Creatinine [Mass ratio] 15.9 mg/mg 10-20 [facility] - Hematology and Cell countsOrdered By: Jacob Mahmood on 08-23-2023 Erythrocyte distribution width (RBC) [Entitic vol] 38.9 fL 35.1-43.9 [facility] Erythrocyte distribution width (RBC) [Ratio] 11.9 % 11.6-14.6 [facility] Immature granulocytes/100 WBC (Bld) 0.200 % 0.0-0.9 [facility] Comment on above: IG% - Immature Granu locytes (promyelocytes, myelocytes and metamyelocytes) > 1% indicates that a LEFT SHIFT is Present. MCH (RBC) [Entitic mass] 29.2 pg 27.0-32.0 [facility] Nucleated RBC/100 WBC (Bld) [Ratio] 0 % 0-5 [facility] MCHC Auto (RBC) [Mass/Vol]Or dered By: Jacob Mahmood on 08-23-2023 MCHC (RBC) [Mass/Vol] 32.6 g/dL 32-36 [facility] No Panel InformationOrdered By: Jacob Mahmood on 08-23-2023 Estimated GFR (MDRD) Amer 89 mL/min >60 [facility] Comment on above: GFR Calc Estimated GFR (MDRD) Non-Af Amer 73 mL/min >60 [facility] Comment on above: Non- GFR Calc Prostate Specific Antigen Screen 1.60 ng/mL 0.00-4.00 [facility] Comment on above: This test was perfor med using the TPSA assay method for the[employer] chemistry system. Values obtained with differentassay methods cannot be used interchangably.When changing PSA assays in the course of monitoring apatient, additional sequential testing should be carriedout to confirm baseline values. Platelets bldOrdered By: Torri Mahmood on 08-23-2023 Platelets (Bld) [#/Vol] 278 10*3/uL 150-450 [facility] Serum or plasma albumin fani urement (mass/volume)Ordered By: Jacob Mahmood on 08-23-2023 Albumin [Mass/Vol] 4.0 g/dL 3.2-5.0 [facility] Serum or plasma albumin/glob ulin mass ratioOrdered By: Jacob Mahmood on 08-23-2023 Albumin/Globulin [Mass ratio] 1.2 {ratio} 0.9-2.4 [facility] Serum or plasma calcium fani urement (mass/volume)Ordered By: Jacob Mahmood on 08-23-2023 Calcium [Mass/Vol] 8.7 mg/dL 8.5-10.1 [facility] Serum or plasma creatinine m easurement (mass/volume)Ordered By: Jacob Mahmood on 08-23-2023 Creatinine [Mass/Vol] 1.13 mg/dL 0.70-1.30 [facility] Comment on above: The validity of the calculated GFR & GFRAA in patients over 70 years has not been determined. Clinical correlation is essential. Serum or plasma urea nitroge n measurement (mass/volume)Ordered By: Jacob Mahmood on 08-23-2023 Urea nitrogen [Mass/Vol] 18 mg/dL 7-18 [facility] Thin prep Papanicolaou smear with manual screeningOrdered By: Jacob Mahmood on 08-23-2023 Thin prep Papanicolaou smear with manual screening 14 U/L 15-37 [facility] Thin prep Papanicolaou smear with manual screening 6 5-15 [facility] Basophil percentageon 2021 Testosterone [Mass/Vol] 393.43 ng/dL [facility] Work Phone: Comment on above: CENTRAL 90% REFERENC E RANGES MALE AGE <50 197.44 - 669.58 ng/dL MALE AGE > or = 50 187.72 - 684.19 ng/dL FEMALE AGE <50 8.38 - 35.01 ng/dL FEMALE AGE > or = 50 <7.00 - 35.92 ng/dL Effective as of 05/04/21 Basophil percentageon 2021 Bilirubin [Mass/Vol] 0.60 mg/dL 0.20-1.00 [facility] Work Phone: Comment on above: For patients on eltr ombopag therapy, use of Dimension Umbarger TBIL is not recommended. Chloride [Moles/Vol] 107 mmol/L 98-107 [facility] Work Phone: Cholesterol [Mass/Vol] 135 mg/dL <200 Wo [facility] Work Phone: Comment on above: <200 mg/dL Desirable 200-240 mg/dL Borderline >240 mg/dL High Risk Glucose [Mass/Vol] 106 mg/dL 74-106 [facility] Work Phone: Comment on above: Fasting Glucose resu lt from 100 to 125 mg/dL suggests IMPAIRED HOMEOSTASIS per A.D.A. criteria. Potassium [Moles/Vol] 3.4 mmol/L 3.5-5.1 [facility] Work Phone: Protein [Mass/Vol] 7.1 g/dL 6.4-8.2 [facility] Work Phone: Sodium [Moles/Vol] 144 mmol/L 136-145 [facility] Work Phone: Triglyceride [Mass/Vol] 221 mg/dL <199 [facility] Work Phone: Comment on above: The drugs N-Acetylcy steine and Metamizole may falsely depress this assay.Serum Triglycerides Reference Interval Normal <150 mg/dL Borderline high 150 - 199 mg/dL High 200 - 499 mg/dL Very High > or = 500 mg/dL Laboratory - Chemistry and C hemistry - challengeon 08-24-2022 ALP [Catalytic activity/Vol] 42 U/L 45-117 [facility] Work Phone: ALT [Catalytic activity/Vol] 30 U/L 16-61 [facility] Work Phone: CO2 [Moles/Vol] 31.0 mmol/L 21.0-32.0 [facility] Work Phone: Globulin (S) [Mass/Vol] 3.4 g/dL 2.2-4.2 [facility] Work Phone: Urea nitrogen/Creatinine [Mass ratio] 10.3 mg/mg 10-20 [facility] Work Phone: No Panel Informationon 08-24 Estimated GFR (MDRD) Amer 86 mL/min >60 [facility] Work Phone: Comment on above: GFR Calc Estimated GFR (MDRD) Non-Af Amer 71 mL/min >60 [facility] Work Phone: Comment on above: Non- GFR Calc Serum or plasma albumin fani urement (mass/volume)on 08-24-2022 Albumin [Mass/Vol] 3.7 g/dL 3.2-5.0 [facility] Work Phone: Serum or plasma albumin/glob ulin mass ratioon 08-24-2022 Albumin/Globulin [Mass ratio] 1.1 {ratio} 0.9-2.4 [facility] Work Phone: Serum or plasma calcium fani urement (mass/volume)on 08-24-2022 Calcium [Mass/Vol] 8.9 mg/dL 8.5-10.1 [facility] Work Phone: Serum or plasma cholesterol in HDL measurement (mass/volume)on 08-24-2022 Cholesterol in HDL [Mass/Vol] 36 mg/dL >40 [facility] Work Phone: Comment on above: The drugs N-Acetylcy steine and Metamizole may falsely depress this assay. Reference Range HDL <40 mg/dL Low HDL Cholesterol HDL >or= 60 mg/dL High HDL Cholesterol Serum or plasma cholesterol in VLDL measurement (mass/volume)on 08-24-2022 Cholesterol in VLDL [Mass/Vol] 44 mg/dL 5-40 [facility] Work Phone: Serum or plasma creatinine m easurement (mass/volume)on 08-24-2022 Creatinine [Mass/Vol] 1.16 mg/dL 0.70-1.30 [facility] Work Phone: Comment on above: The validity of the calculated GFR & GFRAA in patients over 70 years has not been determined. Clinical correlation is essential. Serum or plasma low density lipoprotein (LDL) cholesterol measurement (mass/volume)on 08-24-2022 Cholesterol in LDL [Mass/Vol] 55 mg/dL 0-130 [facility] Work Phone: Serum or plasma urea nitroge n measurement (mass/volume)on 08-24-2022 Urea nitrogen [Mass/Vol] 12 mg/dL 7-18 [facility] Work Phone: Thin prep Papanicolaou smear with manual screeningon 08-24-2022 Thin prep Papanicolaou smear with manual screening 15 U/L 15-37 [facility] Work Phone: Thin prep Papanicolaou smear with manual screening 6 5-15 [facility] Work Phone: Basophil percentageon 2021 Testosterone [Mass/Vol] 1331.73 ng/dL [facility] Work Phone: Comment on above: CENTRAL 90% REFERENC E RANGES MALE AGE <50 197.44 - 669.58 ng/dL MALE AGE > or = 50 187.72 - 684.19 ng/dL FEMALE AGE <50 8.38 - 35.01 ng/dL FEMALE AGE > or = 50 <7.00 - 35.92 ng/dL Effective as of 05/04/21 No Panel Informationon 03-17 Serologic Single Step Test Negative Normal [facility] - [facility]. CNOVon 01-14-2021 CNOV Office Visit ([facility]) VICENTE ESPITIA ([id number]) 1975 M [facility] Date Time Provider Department 01/14/21 4:15 PM PAOLA BLOUNT) [facility] [[email or web address] During your visit today, we recorded the following information about you: Temperature Pulse Respiration Blood pressure 98.6 degrees 83/minute 16/minute 132/88 Weight 119.6 kg Paola Blount PA-C 01/14/2021 4:43 PM Signed This note was created using FastCAPriter. Subjective Vicetne Espitia is a 45 year old male. HPI Patient presents with right lower leg pain for 1 day. He was at a client's house when he was playing and did not see the well pump. He hit the well pump in his right elizabeth. He states he is able to walk but it does throb. He denies numbness or weakness. No problems with the leg in the past. He does have a small abrasion. He wanted to make sure he did not have a fracture. This is a work related injury. Review of Systems HENT: Negative. Respiratory: Negative. Cardiovascular: Negative. Gastrointestinal: Negative. Musculoskeletal: Right lower leg pain All other systems reviewed and are negative. PAST MEDICAL HISTORY Diagnosis Date - ED (erectile dysfunction) Current Outpatient Medications Medication Sig Dispense Refill - metoprolol succinate ER (TOPROL XL) 25 mg 24 hr tablet Take 1 tablet by mouth once daily. - rosuvastatin (CRESTOR) 5 mg tablet Take 1 tablet by mouth once daily. - losartan (COZAAR) 50 mg tablet Take 1 tablet by mouth once daily. - Cholecalciferol, Vitamin D3, 25 mcg (1,000 unit) cap Take 1 capsule by mouth once daily. - loratadine (CLARITIN) 10 mg tablet Take 1 tablet by mouth once daily. - papaverine-phentolam ine-alprostadil 15 MG - 0.5 MG - 5 MCG/ML injection (CPD) 5 mL by INTRACAVERNOSAL route as directed. Mix with 5 mL of bacteriostatic water. Inject 0.1ml into the penis as directed 5 mL 3 - TRI-MIX HIGHER CONCENTRATION Tri-Mix Higher Concentration- Prepare Sterile Solution of: Papaverine 50mg/mL, PGE-1 (alprostadil) 25mcg/mL, PPhentolamine 2.5mg/mL: Use as directed. 5 mL 3 - TRI-MIX HIGHER CONCENTRATION Tri-Mix Higher Concentration- Prepare Sterile Solution of: Papaverine 50mg/mL, PGE-1 (alprostadil) 25mcg/mL, PPhentolamine 2.5mg/mL: Use as directed. 5 mL 3 No current facility-administere d medications for this visit. No past surgical history on file. FAMILY HISTORY Problem Relation Age of Onset - Hypertension Paternal Uncle - Ischemic Heart Disease Paternal Grandfather - Colon Cancer Paternal Grandmother Social History Tobacco Use - Smoking status: Never Smoker - Smokeless tobacco: Never Used Substance Use Topics - Alcohol use: Yes - Drug use: No Objective BP 132/88 Pulse 83 Temp 37 ?C (98.6 ?F) (Left Tympanic) Resp 16 Wt 119.6 kg (263 lb 9.6 oz) SpO2 99% BMI 33.84 kg/m? Physical Exam Vitals reviewed. Constitutional: Appearance: Normal appearance. HENT: Head: Normocephalic and atraumatic. Musculoskeletal: Comments: Exam of the right lower leg reveals a superficial abrasion to the mid to lower anterior elizabeth. He is tender on the mid anterior tibial area. No calf pain or swelling. Some mild swelling as compared to the left. Able to ambulate. Normal range of motion of the knee and foot. Skin: General: Skin is warm and dry. Neurological: Mental Status: He is alert. Assessment and Plan ASSESSMENT/PLAN: 1. Contusion of right lower leg, initial encounter - ICD9: 924.10, ICD10: S80.11XA X-rays are negative. Worker's Comp. paperwork filled out for patient. Discussed rest, ice, continuing Advil for pain. Follow-up with PCP if not improving. Patient agreeable. - XR TIBIA FIBULA 2V AP/LAT RT Paola Blount PA-C Referring Provider: SELF [200] Allergies As of Date: 01/14/2021 Noted Allergy Reaction MOLD 01/08/2021 16 - Unknown Date Reviewed: 01/14/2021 Reviewed by: Talia Marrufo Ma - Fully Assessed Reason for Visit: Musculoskeletal Problem [69] Cmt: RIGHT lower leg/elizabeth area pain x 1 day Primary Visit Diagnosis:Contusion of right lower leg, initial encounter [S80.11XA] Order(s):XR TIBIA FIBULA 2V AP/LAT RT [[id number]] Order #: [id number] FUTURE Prescriptions as of 01/14/2021 Sig: METOPROLOL SUCCINATE ER 25 MG* Take 1 tablet by mouth once d* ROSUVASTATIN 5 MG TABLET Take 1 tablet by mouth once d* LOSARTAN 50 MG TABLET Take 1 tablet by mouth once d* CHOLECALCIFEROL (VITAMIN D3) * Take 1 capsule by mouth once * LORATADINE 10 MG TABLET Take 1 tablet by mouth once d* PAPAVERINE-PHENTOLAM -ALPROST * 5 mL by INTRACAVERNOSAL route* COMPOUNDED PRESCRIPTION Tri-Mix Higher Concentration* COMPOUNDED PRESCRIPTION Tri-Mix Higher Concentration* Problem List As Of Date: 01/14/2021 (None) Encounter Status:Closed by PAOLA BLOUNT PA-C on 01/14/21 [facility] CNOV Office Visit (WSTR) VICENTE ESPITIA ([id number]) 1975 M [facility] Date Time Provider Department 01/14/21 3:45 PM PAOLA BLOUNT ([facility]) [facility] During your visit today, we recorded the following information about you: Temperature Pulse Respiration Blood pressure 98.6 degrees 83/minute 16/minute 132/88 Weight 119.6 kg Referring Provider: SELF [200] Allergies As of Date: 01/14/2021 Noted Allergy Reaction MOLD 01/08/2021 16 - Unknown Date Reviewed: 01/14/2021 Reviewed by: Talia Marrufo Ma - Fully Assessed Reason for Visit: Musculoskeletal Problem [69] Cmt: RIGHT lower leg/elizabeth area x 1 day Primary Visit Diagnosis:APPOINTMEN T CANCELLED Prescriptions as of 01/14/2021 Sig: METOPROLOL SUCCINATE ER 25 MG* Take 1 tablet by mouth once d* ROSUVASTATIN 5 MG TABLET Take 1 tablet by mouth once d* LOSARTAN 50 MG TABLET Take 1 tablet by mouth once d* CHOLECALCIFEROL (VITAMIN D3) * Take 1 capsule by mouth once * LORATADINE 10 MG TABLET Take 1 tablet by mouth once d* PAPAVERINE-PHENTOLAM -ALPROST * 5 mL by INTRACAVERNOSAL route* COMPOUNDED PRESCRIPTION Tri-Mix Higher Concentration* COMPOUNDED PRESCRIPTION Tri-Mix Higher Concentration* Problem List As Of Date: 01/14/2021 (None) Encounter Status:Closed by PAOLA BLOUNT PA-C on 01/16/21 Normal [facility] XR TIBIA FIBULA 2V AP/LAT RT on 01-14-2021 XR TIBIA FIBULA 2V AP/LAT RT * * *Final Report* * * DATE OF EXAM: Jan 14 2021 4:23PM [id number] - XR TIBIA FIBULA 2V AP/LAT RT / PROCEDURE REASON: Lower leg injury, right, initial encounter * * * * Physician Interpretation * * * * CLINICAL INDICATION: Trauma with pain TECHNIQUE: Frontal and lateral radiographs of the right tibia/fibula COMPARISON: None FINDINGS: No fracture or dislocation identified. No radiopaque foreign body. IMPRESSION: No radiographic evidence of acute osseous injury. Trout Farmer: VIDHYA Transcribe Date/Time: Jan 14 2021 4:24P Dictated by : SINA FLORES MD This examination was interpreted and the report reviewed and electronically signed by: SINA FLORES MD on Jan 14 2021 4:24PM EST [id number] CN Normal [facility] XR Tibia and Fibula - right AP and Lateralon 01-14-2021 IMPRESSION: No radiographic evidence of acute osseous injury. Trout Farmer: VIDHYA Transcribe Date/Time: Jan 14 2021 4:24P Dictated by : SINA FLORES MD This examination was interpreted and the report reviewed and electronically signed by: SINA FLORES MD on Jan 14 2021 4:24PM [facility] DIVISION OF RADIOLOGY * * *Final Report* * * DATE OF EXAM: Jan 14 2021 4:23PM [id number] - XR TIBIA FIBULA 2V AP/LAT RT / PROCEDURE REASON: Lower leg injury, right, initial encounter * * * * Physician Interpretation * * * * CLINICAL INDICATION: Trauma with pain TECHNIQUE: Frontal and lateral radiographs of the right tibia/fibula COMPARISON: None FINDINGS: No fracture or dislocation identified. No radiopaque foreign body. DIVISION OF RADIOLOGY Provider, [facility] [place] - 01/14/2021 * * *Final Report* * * DATE OF EXAM: Jan 14 2021 4:23PM [id number] - XR TIBIA FIBULA 2V AP/LAT RT / PROCEDURE REASON: Lower leg injury, right, initial encounter * * * * Physician Interpretation * * * * CLINICAL INDICATION: Trauma with pain TECHNIQUE: Frontal and lateral radiographs of the right tibia/fibula COMPARISON: None FINDINGS: No fracture or dislocation identified. No radiopaque foreign body. IMPRESSION IMPRESSION: No radiographic evidence of acute osseous injury. Trout Farmer: PSCB Transcribe Date/Time: Jan 14 2021 4:24P Dictated by : SINA FLORES MD This examination was interpreted and the report reviewed and electronically signed by: SINA FLORES MD on Jan 14 2021 4:24PM [facility] XR Tibia and Fibula - right AP and LateralOrdered By: [facility] Provider on 01-14-2021 [facility] Vital Signs Date Time Vital Sign Value Performing Clinician Lucia song 04-22-2025 14:52-0400 Body height 187.[address] Jacob Mahmood MD Work Phone: [facility] 04-22-2025 14:52-0400 Body mass index (BMI) [Ratio] 36.7 kg/m2 Dr. Jacob Mahmood MD Work Phone: [facility] 04-22-2025 14:52-0400 Body weight 129.[address] Jacob Mahmood MD Work Phone: [facility] 04-22-2025 14:52-0400 Diastolic blood pressure 87 mm[Hg] Dr. Jacob Mahmood MD Work Phone: [facility] 04-22-2025 14:52-0400 Respiratory rate 16 /min Dr. Jacob Mahmood MD Work Phone: [facility] 04-22-2025 14:52-0400 Systolic blood pressure 133 mm[Hg] Dr. Jacob Mahmood MD Work Phone: [facility] 04-26-2024 10:15-0400 Body height 188 cm Nani ANGEL Work Phone: [facility] 04-26-2024 10:15-0400 Respiratory rate 20 /min Nani ANGEL Work Phone: [facility] 04-26-2024 10:15-0400 SaO2% (BldA) [Mass fraction] 96 % Nani Zurita PA Work Phone: [facility] Encounters Encounter Date Encounter Type Care Provider Facility Start: 04-22-2025 End: 04-22-[address] Lonny Mercado MD -[facility] Work Phone: Start: 04-22-2025 End: 04-22-[address] Jacob Mahmood MD Work Phone: [facility] Start: 08-26-2024 End: 08-26-2024 ambulatory Jacob Mahmood Facility:[facility] Start: 04-26-2024 End: 04-26-2024 Patient encounter procedure Nani ANGEL Work Phone: Urology Comment on above: Other male erectile dysfunction Start: 04-26-2024 End: 04-26-2024 ambulatory NANI ZURITA Facility:[facility] Start: 10-18-2023 End: 10-18-2023 Medication Refill/Order Miranda FRANKS MD [facility] Start: 08-23-2023 End: 08-23-2023 ambulatory [facility] Work Phone: Start: 08-23-2023 End: 08-23-2023 Patient encounter procedure [facility] Start: 09-02-2022 End: 09-02-2022 ambulatory [facility] Work Phone: Start: 09-02-2022 End: 09-02-2022 Patient encounter procedure [facility] Start: 08-24-2022 End: 08-24-2022 ambulatory [facility] Work Phone: Start: 08-24-2022 End: 08-24-2022 Patient encounter procedure [facility] Start: 04-15-2022 End: 04-15-2022 Patient encounter procedure [facility] Start: 03-17-2022 End: 03-17-2022 Lab Only R JADON FRANKS MD Work Phone[facility] Start: 01-14-2021 End: 01-14-2021 Subsequent hospital visit by physician [facility] Work Phone: Radiology Comment on above: Lower leg injury, ri ght, initial encounter [S89.91XA] Start: 04-03-2019 [facility] Facili ty:[facility] Start: 03-28-2018 End: 03-28-2018 [facility] Facility:[facility] Procedures Date Procedure Procedure Detail Performing Clinician Start: 01-14-2021 Radiologic examinati on tibia & fibula 2 views Paola Blount PA-C Work Phone: Start: 01-05-2006 Lipid 1996 panel - S [place] or Plasma Nani ANGEL Work Phone: Plan of Treatment Date Care Activity Detail Author Start: 08-23-2033 Urine microalbumin profile DTa P,Tdap,Td Vaccine (2 - Td or Tdap) [facility] Start: 06-09-2024 Covid-19 Vaccine ( season) Covid-19 Vaccine () [facility] Start: 06-09-2024 Influenza vaccination Influenza Vacc ine (#1) [facility] Start: 10-09-2023 Behavioral Health Screening Behavioral Health Screening [facility] Start: 06-09-2023 Covid-19 Vaccine ( season) Covid-19 Vaccine () [facility] Start: 2019 Diabetes Screening Diabetes Screenin g [facility] Start: 2019 Screening for malign ant neoplasm of colon [facility] Start: 01-05-2011 Lipid panel Lipid Screening [facility] Start: 1993 Hepatitis B Vaccine (1 of 3 - 19+ 3-dose series) Hepatitis B Vaccine (1 of 3 - 19+ 3-dose series) [facility] Start: 1992 Anxiety Screening Anxiety Screening [facility] Start: 1992 Depression Screening Depression Scre ening [facility] Start: 1992 Hepatitis C screening Hepatitis C Sc reening [facility] Start: 1992 HIV screening HIV Screening [facility] Immunizations Immunization Date Immunization Notes Care Provider Fa brigid 08-23-2023 influenza virus vacc ine, unspecified formulation Nani ANGEL Work Phone: [facility] Payers Date Payer Category Payer Self-pay [id number] 2024 Self-pay [phone] 2020 Unknown [id number] 2020 Unknown [id number] Private Health Insurance [facility] [id number] Unknown [id number] Unknown [id number] Unknown [id number] Unknown [id number] Social History Date Type Detail Facility Start: 01-08-2021 End: 01-08-2021 Tobacco smoking status NHIS Unknown if ever smoked [facility] Start: 12-02-2019 None [facility] Start: 12-02-2019 Spouse/ Signif icant Other [facility] Start: 1975 Sex Assigned At Male [facility] Start: 03-28-2018 End: 01-08-2021 Tobacco smoking status NHIS Never smoked tobacco [facility] Start: 03-28-2018 Tobacco use and exposure Smokeless tobacco non-user [facility] Start: 01-14-2021 End: 04-26-2024 Alcohol intake Current drinker of alcohol (finding) [facility] Start: 09-15-2020 End: 04-26-2024 History of Social function [facility] Start: 09-15-2020 End: 04-26-2024 Tobacco use panel [facility] National Score (1-100), lower number is lower risk 46 [facility] Start: 04-25-2024 Gender identity Identifies as male gender (finding) [facility] Start: 04-25-2024 Sexual orientation Heterosexual (fin ding) [facility] Start: 12-15-2020 End: 01-14-2021 Exposure to SARS-CoV-2 (event) Not sure [facility] NEGATED: Highlighted row No Social History Information Available No Social History Information Available [facility]; [facility] Work Phone: Clinical Notes 01-14-2021 to 04-22-2025 Note Date & Type Note Facility 04-22-2025 Progress note [facility] 04-22-2025 Progress note Note Date/Time April 22, 2025 3:02pm [facility] [address] [place], [place] [address] OFFICE VISIT Date of Service: 04/22/25 MR#: [id number] Acct: [id number] Name: VICENTE ESPITIA Rep #: [id number] : 1975 Provider: Dr. Henrik Mercado MD Age/Sex: 49/M Location: [facility] Status: Signed Intake Vital Signs 04/22/25 14:52 Height 6 ft 2 in Weight: 286 lb BMI 36.7 BP 133/87 H Blood Pressure Location Rt brachial Position Sitting Respiration 16 Intake Visit Reasons: Hernia Chief Complaint: umb hernia Trout Farmer Required: No Is patient in pain?: No Allergies mold Allergy (Severe, Verified 04/22/25 14:53) Unknown Medications ?Medication ?Instructions ?Recorded ?Confirmed ?Type rosuvastatin 5 mg tablet (Crestor) 5 mg PO DAILY 12/2404/22/25 History loratadine 10 mg tablet 10 mg PO DAILY 03/06/2004/08 History cholecalciferol (vitamin D3) 25 25 mcg PO DAILY 04/22/25 History mcg (1,000 unit) capsule losartan 50 mg tablet 50 mg PO DAILY #90 tabs 06/1004/22/25 Rx metoprolol succinate 25 mg 25 mg PO DAILY 90 days #90 tabs 03/04/25 04/22/25 Rx tablet,extended release 24 hr bupropion HCl 300 mg 24 hr tablet, 300 mg PO QDAY 04/0804/22/25 History extended release testosterone cypionate 200 mg/mL 200 mg IM Q2W 04/22/25 History intramuscular oil Have you fallen in the past year?: No PFSH Medical History (Updated 04/22/25 @ 15:[address] Lonny Mercado MD) High cholesterol Paroxysmal atrial fibrillation (12/02/19) Obesity Hyperlipidemia Essential (primary) hypertension Erectile dysfunction Family History Mother Rheumatoid arthritis Grandmother Colon cancer Grandfather Diabetes Polio Social History Smoking Status: Never smoker alcohol intake: current what type of physical activity do you participate in: walking HPI HPI HPI: Patient is a 49-year-old male here for umbilical hernia. He says has been therefor about a year and a half. He denies any nausea or vomiting or fevers or chills or pain in the area. ROS General General: No weight change, appetite, fatigue, colon cancer, breast cancer or weakness HEENT HEENT: No difficulty swallowing, eye injury, eye surgery, swollen glands or hoarseness Endo Endocrine: No thyroid disease, diabetes mellitus, thyroid cancer, Hair loss, heat intolerance or cold intolerance Skin Skin: No rash or changing moles Breast Breast: No left breast lump, right breast lump, nipple discharge, breast pain, abnormal mammogram, abnormal US or breast enlargement Musc Musculoskeletal: No back problems, arthritis, rheumatoid arthritis, gout or joint pain Cardio Cardiovascular: Yes high blood pressure; No murmur, pacemaker, heart disease, atrial fibrillation, heart attack, heart stent, palpitations, shortness of breath with exertion or chest pain Psych Psychiatric: Yes anxiety; No depression or hearing voices Resp Respiratory: No shortness of breath, No sleep apnea, No cough, No COPD, No asthma, No emphysema and No wheezing Gastro Gastrointestinal: No abdominal pain, No nausea or vomiting, No diarrhea, No constipation, No blood in stool, No acid reflux, No hemorrhoids, No ulcers, No gallbladder problem and No black,tarry stools Mani Hematologic: No blood thinners, No blood disorders, No bleeding, No anemia and No blood clots Neuro Neurologic: No system reviewed and no additional complaints, except as documented, No as per HPI, No abnormal gait, No abnormal hearing, No abnormal movements, No abnormal speech, No behavioral changes, No burning sensations, No confusion, No convulsions, No disequilibrium, No dizziness, No localized weakness, No frequent falls, No headache(s), No lack of coordination, No loss ofvision, No memory loss, No numbness, No other visual disturbances, No radicular pain, No restless legs, No sensory deficit, No syncope, No tingling, No tremor(s), No weakness and No other Exam Const General: cooperative Orientation: alert and oriented x3 HENMT Head: normal to inspection Neck Neck: normal visual inspection and full ROM Chest Chest palpation & inspection: normal inspection of the chest Resp Effort & Inspection: normal respiratory effort Auscultation: clear to auscultation bilaterally Cardio Rate: regular rate Rhythm: regular rhythm GI Inspection: non-distended Palpation: soft, hernia umbilical and nontender Skin General: no rashes or lesions noted Neuro General: patient alert and patient oriented x3 Extrem General: full ROM Psych Appearance: grossly normal Mental Status: mental status grossly normal Assessment and Plan Assessment and Plan (1) Umbilical hernia: Status: Acute Plan: The patient has a small reducible umbilical hernia. I discussed repair with possible mesh. I discussed repairing it with mesh if it was over 1 cm. I discussed the procedure in detail as well as the risks including but not limitedto bleeding, infection, injury to underlying organs. Patient understands the risks and is willing to proceed. Lonny Mercado MD Pager: [facility] [address] [place] [address] [address] [place] [address] Office: Coding Level of Care Code Off vis,new,level 3 Diagnoses Umbilical hernia K42.9 Clinical Quality Measures Falls Risk Screening/Assistive Devices Have you fallen in the past year?: No 04/22/25 1502 <Electronically signed by Lonny león MD> Date _ Lonny Mercado MD Cosigner Signature: Date (if applicable) CC: Dr. Jacob Mahmood MD ~ [facility] [employer] Work Phone: [phone] 345-163607-19-2024 History of Present illness Narrative* Nani Zurita PA - 04/26/2024 10:40 AM EDT [facility] HISTORY OF PRESENT ILLNESS The patient is 48 year old male with a history of low T and ED who presents for follow up Patient was last seen in urology 11/[address] Marshall advised quad mix for ED. Also followup with DR. Guzmán for testosterone replacement management and further surgical management for Ed. Interval History Patient has been doing well since last visit. No new major medical concerns. ICI working well for patient. No complaints today. Low T managed by PCP DATA REVIEW LABS No results found for: CREAT PAST MEDICAL HISTORY/COMORBIDITIES PAST MEDICAL HISTORY Diagnosis Date ED (erectile dysfunction) No past surgical history on file. No changes. REVIEW OF SYSTEMS REVIEW OF SYSTEMS: CONSTITUTIONAL: No fevers, chills, nightsweats, unintended weight loss GI: No dysphagia/odynophagia, problematic reflux, constipation, diarrhea, changes in stool habits, hematochezia, melena. : No new urinary complaints, including dysuria, gross hematuria or pyuria. INTEGUMENTARY: No new skin changes (rash, new or changing mole, new growth) All other systems were reviewed and are negative. PHYSICAL EXAM GENERAL APPEARANCE: Alert and oriented, No acute distress. HEENT: EOM, pupils equal, round and reactive. NECK: Normal ROM. LUNGS: Normal effort CARDIAC: Well perfused. ABDOMEN: Non-distended. MUSCULOSKELETAL: No edema. Normal ROM in extremities. NEUROLOGIC: Gait normal. No focal deficits. SKIN: Skin color normal. No suspicious rashes or lesions. ASSESSMENT & PLAN This is a 48 year old male who presented today for follow up of ED and low testosterone ED, managed with with ICI and Cialis as needed - refills sent Low T, managed by PCP - Continue follow up with PCP Plan: The patient will follow up with us in 1 year or sooner with new, worsening or persistent symptoms. I spent a total of 25 minutes on the date of the service which included preparing to see the patient, [id number] patient care, completing clinical documentation, counseling and educating the patient/family/caregiver, and ordering medications, tests, or procedures. Nani Zurita PA-C documented in this encounterProm[facility] NoteHNO ID: [id number] Author: NANI ZURITA PA Service: ? Author Type: Physician Fabrication And Layout Craftsman Type: Progress Notes Filed: 04/26/2024 10:26 Note Text: [facility] HISTORY OF PRESENT ILLNESS The patient is 48 year old male with a history of low T and ED who presents for follow up Patient was last seen in urology 11/[address] Marshall advised quad mix for ED. Also follow up with DR. Guzmán for testosterone replacement management and further surgical management for Ed. Interval History Patient has been doing well since last visit. No new major medical concerns. ICI working well for patient. No complaints today. Low T managed by PCP DATA REVIEW LABS No results found for: CREAT PAST MEDICAL HISTORY/COMORBIDITIES PAST MEDICAL HISTORY Diagnosis Date ED (erectile dysfunction) No past surgical history on file. No changes. REVIEW OF SYSTEMS REVIEW OF SYSTEMS: CONSTITUTIONAL: No fevers, chills, nightsweats, unintended weight loss GI: No dysphagia/odynophagia, problematic reflux, constipation, diarrhea, changes in stool habits, hematochezia, melena. : No new urinary complaints, including dysuria, gross hematuria or pyuria. INTEGUMENTARY: No new skin changes (rash, new or changing mole, new growth) All other systems were reviewed and are negative. PHYSICAL EXAM GENERAL APPEARANCE: Alert and oriented, No acute distress. HEENT: EOM, pupils equal, round and reactive. NECK: Normal ROM. LUNGS: Normal effort CARDIAC: Well perfused. ABDOMEN: Non-distended. MUSCULOSKELETAL: No edema. Normal ROM in extremities. NEUROLOGIC: Gait normal. No focal deficits. SKIN: Skin color normal. No suspicious rashes or lesions. ASSESSMENT AND PLAN This is a 48 year old male who presented today for follow up of ED and low testosterone ED, managed with with ICI and Cialis as needed - refills sent Low T, managed by PCP - Continue follow up with PCP Plan: The patient will follow up with us in 1 year or sooner with new, worsening or persistent symptoms. I spent a total of 25 minutes on the date of the service which included preparing to see the patient, [id number] patient care, completing clinical documentation, counseling and educating the patient/family/caregiver, and ordering medications, tests, or procedures. STANLEY [facility]04-08-2021 NoteHNO ID: [id number] Author: Paola Blount (Pa) Service: ? Author Type: Physician Fabrication And Layout Craftsman Type: Progress Notes Filed: 01/14/2021 4:43 PM Note Text: This note was created using FastCAPriter. Subjective Vicente Espitia is a 45 year old male. HPI Patient presents with right lower leg pain for 1 day. He was at a client's house when he was playing and did not see the well pump. He hit the well pump in his right elizabeth. He states he is able to walk but it does throb. He denies numbness or weakness. No problems with the leg in the past. He does have a small abrasion. He wanted to make sure he did not have a fracture. This is a work related injury. Review of Systems HENT: Negative. Respiratory: Negative. Cardiovascular: Negative. Gastrointestinal: Negative. Musculoskeletal: Right lower leg pain All other systems reviewed and are negative. PAST MEDICAL HISTORY Diagnosis Date - ED (erectile dysfunction) Current Outpatient Medications Medication Sig Dispense Refill - metoprolol succinate ER (TOPROL XL) 25 mg 24 hr tablet Take 1 tablet by mouth once daily. - rosuvastatin (CRESTOR) 5 mg tablet Take 1 tablet by mouth once daily. - losartan (COZAAR) 50 mg tablet Take 1 tablet by mouth once daily. - Cholecalciferol, Vitamin D3, 25 mcg (1,000 unit) cap Take 1 capsule by mouth once daily. - loratadine (CLARITIN) 10 mg tablet Take 1 tablet by mouth once daily. - tmeoqaghpn-iuvfrwusuzao-otdqasrmqen 15 MG - 0.5 MG - 5 MCG/ML injection (CPD) 5 mL by INTRACAVERNOSAL route as directed. Mix with 5 mL of bacteriostatic water. Inject 0.1ml into the penis as directed 5 mL 3 - TRI-MIX HIGHER CONCENTRATION Tri-Mix Higher Concentration- Prepare Sterile Solution of: Papaverine 50mg/mL, PGE-1 (alprostadil) 25mcg/mL, PPhentolamine 2.5mg/mL: Use as directed. 5 mL 3 - TRI-MIX HIGHER CONCENTRATION Tri-Mix Higher Concentration- Prepare Sterile Solution of: Papaverine 50mg/mL, PGE-1 (alprostadil) 25mcg/mL, PPhentolamine 2.5mg/mL: Use as directed. 5 mL 3 No current facility-administered medications for this visit. No past surgical history on file. FAMILY HISTORY Problem Relation Age of Onset - Hypertension Paternal Uncle - Ischemic Heart Disease Paternal Grandfather - Colon Cancer Paternal Grandmother Social History Tobacco Use - Smoking status: Never Smoker - Smokeless tobacco: Never Used Substance Use Topics - Alcohol use: Yes - Drug use: No Objective BP 132/88 Pulse 83 Temp 37 ?C (98.6 ?F) (Left Tympanic) Resp 16 Wt 119.6 kg (263 lb 9.6 oz) SpO2 99% BMI 33.84 kg/m? Physical Exam Vitals reviewed. Constitutional: Appearance: Normal appearance. HENT: Head: Normocephalic and atraumatic. Musculoskeletal: Comments: Exam of the right lower leg reveals a superficial abrasion to the mid to lower anterior elizabeth. He is tender on the mid anterior tibial area. No calf pain or swelling. Some mild swelling as compared to the left. Able to ambulate. Normal range of motion of the knee and foot. Skin: General: Skin is warm and dry. Neurological: Mental Status: He is alert. Assessment and Plan ASSESSMENT/PLAN: 1. Contusion of right lower leg, initial encounter - ICD9: 924.10, ICD10: S80.11XA X-rays are negative. Worker's Comp. paperwork filled out for patient. Discussed rest, ice, continuing Advil for pain. Follow-up with PCP if not improving. Patient agreeable. - XR TIBIA FIBULA 2V AP/LAT RT STANLEY [facility]04-08-2021 NoteHNO ID: [id number] Author: Messi Schroeder (Tech) Service: ? Author Type: Bottom Sprayer Type: Progress Notes Filed: 01/14/2021 4:23 PM Note Text: Radiology Service Progress Note PATIENT NAME: Vicente Espitia DATE OF SERVICE: January 14, 2021 TIME: 4:12 PM PATIENT IDENTITY VERIFICATION COMPLETED USING TWO (2) IDENTIFIERS: Name and Date of confirmed by patient verbally. FALL SCREENING: Has the patient had 2 falls in the last year or 1 fall with injury or currently using an Ambulatory Assistive Device (Walker, Cane, Wheelchair, Crutches, etc.)? No PATIENT GENDER DATA: Male PATIENT RELEVANT IMPLANT DATA REVIEWED: Not Applicable RADIOLOGY DEPARTMENT: General X-ray: Exam(s) Completed: Lower Extremity X-Ray(s): Tibia Fibula, Right: PERIPHERAL IV DATA: Not applicable SIGNED BY: Messi Schroeder January 14, 2021 4:12 [facility]04-08-2021 History of Present illness Narrative* Huma Leon Tech (Tech) - 01/14/2021 4:20 PM EDT Radiology Service Progress Note PATIENT NAME: Vicente Espitia DATE OF SERVICE: January 14, 2021 TIME: 4:12 PM PATIENT IDENTITY VERIFICATION COMPLETED USING TWO (2) IDENTIFIERS: Name and Date of confirmedby patient verbally. FALL SCREENING: Has the patient had 2 falls in the last year or 1 fall with injury or currently using an Ambulatory Assistive Device (Walker, Cane, Wheelchair, Crutches, etc.)? No PATIENT GENDER DATA: Male PATIENT RELEVANT IMPLANT DATA REVIEWED: Not Applicable RADIOLOGY DEPARTMENT: General X-ray: Exam(s) Completed: Lower Extremity X- Ray(s): Tibia Fibula, Right: PERIPHERAL IV DATA: Not applicable SIGNED BY: Messi Schroeder January 14, 2021 4:12 PM [facility] noteNo assessment information availableWTriHealth McCull[facility] Work Phone: Evaluation note* Diagnosis Other male erectile dysfunction documented in this encounter [facility] note* Diagnosis Lower leg injury, right, initial encounter documented in this encounter [facility]* Diagnosis Onset Date Resolution Status Admit Date Umbilical hernia acute April 2:42pm [facility] Work Phone: Reason for referral (narrative)No reason for referral information availableBlSan Dimas Community Hospital Work Phone: Summary Purpose Family History No Family History Records Found Relationship Condition Age at Onset Recorded Date/T kary mother Rheumatoid arthritis Unknown grandmother Malignant neoplasm of colon Unknown grandfather Diabetes mellitus Unknown Acute poliomyelitis Unknown Advance Directives No Advanced Directives Records Found Advance Directive Response Recorded Date/ Time Living Will No December 01 11:21pm Power of Poultry Tender No December 01, 2019 11:21pm Advance Directive Response Recorded Date/ Time Living Will No December 01, 020 10:21pm Power of Poultry Tender No December 01, 2019 10:21pm Chief Complaint and Reason for Visit Chief Complaint EORDER Chief Complaint Admit Date Hernia April 22, 2025 2:42 pm Reason for Visit Admit Date Umbilical hernia April 22, 2025 2:42 pm Additional Source Comments (unrecognized sect ion and content) No Status Records FoundNo Status Records FoundNo Status Records FoundNo Status Records Found INFORMATION SOURCE (unrecogn ized section and content) DATE CREATED AUTHOR 03/29/2018 [facility] DATE CREATED AUTHOR AUTHOR'S ORGANIZ ATION 12/28/2021 [facility] DATE CREATED AUTHOR AUTHOR'S ORGANIZ ATION 04/29/2024 [facility] DATE CREATED AUTHOR AUTHOR'S ORGANIZ ATION 04/24/2025 [facility] Goals (unrecognized section and content) Goals may be documented in a n alternate sectionGoals may be documented in an alternate sectionGoals may be documented in an alternate sectionGoals may be documented in an alternate sectionGoals may be documented in an alternate section Care Teams (unrecognized sec tion and content) Team Status: Active Member Role Status Dates Dr. Jacob Mahmood MD Family Provider Active Dr. Jacob Mahmood MD Primary Care Provider Active Team Status: Inactive Member Role Status Dates Dr. Jacob Mahmood MD Primary Care Provider, Attending Provider Active [employer] Relationship Specialty Start Date End Date Jacob Mahmood MD PCP - General Family Medicine 09/10/16 [employer] Relationship Specialty Start Date End Date Jacob Mahmood MD PCP - General Family Medicine 09/10/16 Team Status: Active Member Role/Relationship Status Dates Dr. Jacob Mahmood MD Family Provider Active Dr. Jacob Mahmood MD Primary Care Provider Active Team Status: Inactive Member Role/Relationship Status Dates Dr. Jacob Mahmood MD Primary Care Provider Active Start: April 22, 2025 End: April 22, 2025 Dr. Jacob Mahmood MD Referring Provider Active Start: April 22, 2025 End: April 22, 2025 Dr. Lonny Mercado MD Attending Provider Active Start: April 22, 2025 End: April 22, 2025 Source Comments (unrecognize d section and content) In the event this informatio n is protected by the Federal Confidentiality of Alcohol and Drug Abuse Patient Records regulations: The Federal rules restrict any use of the information to criminally investigate or prosecute any alcohol or drug abuse patient.[facility] HospitalIn the event this information is protected by the Federal Confidentiality of Alcohol and Drug Abuse Patient Records regulations: The Federal rules restrict any use of the information to criminally investigate or prosecute any alcohol or drug abuse patient.[facility] Reason for Visit (unrecogniz ed section and content) Reason Comments med refill Reason Comments Radiology XR FOR RECORDS PERTAINING TO PATIENTS WHO ARE OR HAVE BEEN ENROLLED IN A CHEMICAL DEPENDENCY/SUBSTANCEABUSE PROGRAM, SOME INFORMATION MAY BE OMITTED. This clinical summary was aggregated from multiple sources. Caution should be exercised in using it in the provision of clinical care. This summary normalizes information from multiple sources, and as a consequence, information in this document may materially change the coding, format and clinical context of patient data. In addition, data may be omitted in some cases. CLINICAL DECISIONS SHOULD BE BASED ON THE PRIMARY CLINICAL RECORDS. [employer] [facility]. provides no warranty or guarantee of the accuracy or completeness of information in this document.
[2025-04-25 12:09] LABS: Hematocrit 42.8 % (40-54); Hemoglobin 14.8 g/dL (13.0-16.5); Immature Granulocytes Count 0.020 X10^3/uL (0.0-0.0); Mean Corp Hgb Conc 34.6 g/dL (32-36); Mean Corpuscular Volume 85.8 fL (80-94); Mean Platelet Vol. 11.0 fl (6.2-12.0); NRBC Flagged by Analyzer 0 % (0-5); Platelet Count 259 K/mm3 (150-450); RBC Distribution Width CV 12.3 % (11.6-14.6); RBC Distribution Width SD 38.6 fl (35.1-43.9); Red Blood Count 4.99 M/mm3 (4.6-6.2); White Blood Count 7.7 K/mm3 (4.4-11.0)
[2025-04-25 12:58] LABS: AST(SGOT) 19 U/L (<=37); Alanine Aminotransfer ALT/SGPT 23 U/L (<=46); Albumin, Serum 4.4 g/dL (3.5-5.0); Alkaline Phosphatase 49 U/L (40-129); Anion Gap 12 (5-15); BUN 18 mg/dL (4-19); BUN/Creat Ratio 17.4 RATIO (10-20); Calcium,Total 9.1 mg/dL (7.6-11.0); Carbon Dioxide 20.4 mmol/L (21.0-32.0); Chloride 108 mmol/L (98-108); Cholesterol 146 mg/dL (<=200); Globulin 2.5 g/dL (2.2-4.2); Glucose 106 mg/dL (70-99); Low Density Lipoprotein Calc. 75 mg/dL; PSA,Total- Diagnostic 1.21 ng/mL (0.00-4.00); Potassium 3.9 mmol/L (3.3-5.1); Triglycerides 151 mg/dL; Very Low Density Lipoprotein 30 mg/dL (5-40); cholesterol:hdl ratio screen 3.57
== END | disposition home or self-care (01) ==
LOC: MFPLAB 09:53
PROVIDERS: PCP Family Medicine; Referring Provider Family Medicine; Visit Provider Family Medicine
DX: E29.1 Testicular hypofunction (principal); E78.5 Hyperlipidemia, unspecified
CPT/HCPCS: 36415; 80053; 80061; 84153; 84403; 85025